=== PATIENT | female | born 1950 | race Caucasian/White ===

== ENCOUNTER 2021-12-26 13:20 | Emergency (ER) | payer OTHER ==
[2021-12-26] MEDS ORDERED: SODIUM CHLORIDE 0.9% 1,000 ML IV STA (13:41)
[2021-12-26] MEDS ORDERED: METOCLOPRAMIDE 5 MG/ML 2 ML VIAL IVP STA (13:43)
[2021-12-26] MEDS ORDERED: MECLIZINE 12.5 MG TAB PO STA (13:43)
--- NOTE | 2021-12-26 13:45 | ED ---
General Adult HPI - General Source: patient, EMS, RN notes reviewed Mode of arrival: EMS Limitations: no limitations <Tank Smith - Last Filed: 12/26/21 14:59> <Louie Mckeon - Last Filed: 12/26/21 16:56> - General Chief complaint: Dizziness Stated complaint: Dizziness Time Seen by Provider: 12/26/21 13:27 - History of Present Illness Initial comments: Patient is a pleasant 71-year-old female presenting to the emergency department with dizziness. Onset of symptoms was less than an hour prior to arrival. Camacho cordova was doing cleaning in the shower prior to this. Patient feels a spinning type sensation. Symptoms worsen with upright position and head movements. Symptoms improved with rest and lying down. No history of similar symptoms previously. No speech problems or confusion. No headache. No weakness. (Tank Smith) - Related Data Previous Rx's Medication Instructions Recorded Meclizine [Antivert] 25 mg PO TID PRN #15 tab 12/26/21 Allergies Allergy/AdvReac Type Severity Reaction Status Date / Time cefazolin [From Kefzol] Allergy Rash/Hives Verified 12/26/21 13:31 codeine Allergy Rash/Hives Verified 12/26/21 13:31 Penicillins Allergy Rash/Hives Verified 12/26/21 13:31 Review of Systems ROS Other: All systems not noted in ROS Statement are negative. Constitutional: Denies: fever Eyes: Denies: eye pain ENT: Denies: ear pain Respiratory: Denies: cough Cardiovascular: Denies: chest pain Endocrine: Denies: fatigue Gastrointestinal: Denies: abdominal pain Genitourinary: Denies: dysuria Musculoskeletal: Denies: back pain Skin: Denies: rash Neurological: Reports: vertigo. Denies: headache, weakness, numbness, paresthesias, confusion <Tank Smith - Last Filed: 12/26/21 14:59> ROS Other: All systems not noted in ROS Statement are negative. <Louie Mckeon - Last Filed: 12/26/21 16:56> ROS Statement: Those systems with pertinent positive or pertinent negative responses have been documented in the HPI. Past Medical History Past Medical History: No Reported History History of Any Multi-Drug Resistant Organisms: None Reported Past Surgical History: Section, Orthopedic Surgery Past Psychological History: No Psychological Hx Reported Smoking Status: Former smoker Past Alcohol Use History: None Reported Past Drug Use History: None Reported <Tank Smith - Last Filed: 12/26/21 14:59> General Exam Limitations: no limitations General appearance: alert, in no apparent distress Head exam: Present: normocephalic Eye exam: Present: normal appearance, PERRL, EOMI ENT exam: Present: normal oropharynx, TM's normal bilaterally Neck exam: Present: normal inspection Respiratory exam: Present: normal lung sounds bilaterally Cardiovascular Exam: Present: regular rate, normal rhythm GI/Abdominal exam: Present: soft. Absent: tenderness Extremities exam: Present: normal inspection Neurological exam: Present: alert, oriented X3, CN II-XII intact. Absent: motor sensory deficit Expanded Neurological exam: Present: protecting the airway Speech: Present: fluid speech Cranial nerves: EOM's Intact: Normal, Facial Sensation: Normal Sensory exam: Upper Extremity Light Touch: Normal, Lower Extremity Light Touch: Normal Motor strength exam: RUE: 5, LUE: 5, RLE: 5, LLE: 5 Eye Response: (4) open spontaneously Motor Response: (6) obeys commands Verbal Response: (5) oriented Psychiatric exam: Present: normal affect, normal mood Skin exam: Present: normal color <Tank Smith - Last Filed: 12/26/21 14:59> Course Vital Signs 12/26/21 16:00 Pulse Rate 94 Respiratory 16 Rate Blood Pressure 160/83 O2 Sat by Pulse 96 Oximetry EKG Findings - EKG Comments: EKG Findings:: Sinus rhythm 89 rate. CA 147. QRS 92. QT 353. QTC 399. Normal axis. Normal QRS. No acute ST change. <Takn Smith - Last Filed: 12/26/21 14:59> Medical Decision Making - Lab Data Result diagrams: 12/26/21 14:44 - Radiology Data Radiology results: report reviewed (CT brain reveals no acute process), image reviewed (Chest x-ray shows no acute process) <Tank Smith - Last Filed: 12/26/21 14:59> - Lab Data Result diagrams: 12/26/21 14:44 12/26/21 14:44 <Louie Mckeon - Last Filed: 12/26/21 16:56> - Medical Decision Making Patient care signed out to me by previous shift physician, Dr. Smith. Briefly, patient is 71-year-old female presents to the emergency department for symptoms suggestive of benign paroxysmal positional vertigo. Prior to sign out patient had computed tomography scan that was read as normal. Patient also do chest x- ray that was unremarkable. Laboratory evaluation was reviewed. CBC, coag panel metabolic panel is unremarkable. Parents was to reevaluate patient or symptoms and determine final disposition. Patient relented bedside at 4:55 PM. Patient states she feels improved. She does confirm that her symptoms are exacerbated with movement and relieved with rest. Patient was given Antivert. States that her symptoms improved with Antivert. Patient is ambulatory without complications. Patient agreeable for discharge. Patient prescription for Antivert advised follow-up with primary care doctor. (Louie Mckeon) - Lab Data Lab Results 12/26/21 12/26/21 12/26/21 Range/Units 14:44 14:44 14:44 WBC 9.1 (3.8-10.6) k/uL RBC 4.43 (3.80-5.40) m/uL Hgb 13.1 (11.4-16.0) gm/dL Hct 40.7 (34.0-46.0) % MCV 91.9 (80.0-100.0) fL MCH 29.6 (25.0-35.0) pg MCHC 32.2 (31.0-37.0) g/dL RDW 13.2 (11.5-15.5) % Plt Count 273 (150-450) k/uL MPV 8.2 Neutrophils % 80 % Lymphocytes % 13 % Monocytes % 5 % Eosinophils % 1 % Basophils % 1 % Neutrophils # 7.3 (1.3-7.7) k/uL Lymphocytes # 1.2 (1.0-4.8) k/uL Monocytes # 0.5 (0-1.0) k/uL Eosinophils # 0.1 (0-0.7) k/uL Basophils # 0.0 (0-0.2) k/uL PT 10.3 (9.0-12.0) sec INR 0.9 (<1.2) Sodium 135 L (137-145) mmol/L Potassium 4.0 (3.5-5.1) mmol/L Chloride 103 (98-107) mmol/L Carbon Dioxide 23 (22-30) mmol/L Anion Gap 9 mmol/L BUN 14 (7-17) mg/dL Creatinine 0.81 (0.52-1.04) mg/dL Est GFR (CKD-EPI)AfAm 85 (>60 ml/min/1.73 sqM) Est GFR (CKD-EPI)NonAf 73 (>60 ml/min/1.73 sqM) Glucose 122 H (74-99) mg/dL Calcium 8.8 (8.4-10.2) mg/dL Total Bilirubin 0.4 (0.2-1.3) mg/dL AST 27 (14-36) U/L ALT 17 (4-34) U/L Alkaline Phosphatase 60 (38-126) U/L Total Protein 6.3 (6.3-8.2) g/dL Albumin 4.1 (3.5-5.0) g/dL Disposition <Tank Smith - Last Filed: 12/26/21 14:59> Is patient prescribed a controlled substance at d/c from ED?: No Time of Disposition: 16:56 <Louie Mckeon - Last Filed: 12/26/21 16:56> Clinical Impression: BPPV (benign paroxysmal positional vertigo) Disposition: HOME SELF-CARE Condition: Good Instructions (If sedation given, give patient instructions): Vertigo (ED) Prescriptions: Meclizine [Antivert] 25 mg PO TID PRN #15 tab PRN Reason: dizziness Referrals: Nonstaff,Physician [Primary Care Provider] - 1-2 days
--- NOTE | 2021-12-26 14:16 | CT ---
EXAMINATION TYPE: CT brain wo con CT DLP: 1056.4 mGycm, Automated exposure control for dose reduction was used. DATE OF EXAM: 12/26/2021 2:07 PM COMPARISON: None. CLINICAL INDICATION:Female, 71 years old with history of weakness, Weakness, dizziness TECHNIQUE: Brain: Axial CT images of the brain were obtained with coronal and sagittal reformats created and rev iewed. Contrast used: None. Oral contrast used: None. FINDINGS: Brain: Extra-axial spaces: No abnormal extra-axial fluid collections. Ventricular system: Within normal limits Cerebral parenchyma: No acute intraparenchymal hemorrhage or mass effect. The brown-white junction is well differentiated. Cerebellum: Unremarkable. Mass effect: No evidence of midline shift. Intracranial vasculature: Atherosclerotic calcifications of the intracranial vessels. Soft tissues: Normal. Calvarium/osseous structures: No depressed skull fracture. Paranasal sinuses and mastoid air cells: Mild scattered paranasal sinus disease. Visualized orbits: Bilateral aphakia IMPRESSION: No acute intracranial process.
--- NOTE | 2021-12-26 14:28 | XR ---
EXAMINATION TYPE: XR chest 2V DATE OF EXAM: 12/26/2021 2:18 PM COMPARISON: Chest radiographs from TECHNIQUE: XR chest 2V . CLINICAL INDICATION:Female, 71 years old with history of Weakness; FINDINGS: Lungs/Pleura: There is no evidence of pleural effusion, focal consolidation, or pneumothorax. Pulmonary vascularity: Unremarkable. Heart/mediastinum: Cardiomediastinal silhouette is unremarkable. Atherosclerotic calcifications are seen in the aorta. Musculoskeletal: Age-indeterminate anterior wedge compression deformity of the midthoracic spine. The re is approximately 30 % height loss without definitive retropulsion. IMPRESSION: No acute cardiopulmonary disease/process. Age-indeterminate wedge compression deformity of the midthoracic spine. Correlate with point tenderne ss.
[2021-12-26 14:59] LABS: Basophils % (A) 1 %; Eosinophils # (A) 0.1 k/uL (0-0.7); Eosinophils % (A) 1 %; HCT 40.7 % (34.0-46.0); HGB 13.1 gm/dL (11.4-16.0); Lymphocytes # (A) 1.2 k/uL (1.0-4.8); Lymphocytes % (A) 13 %; MCH 29.6 pg (25.0-35.0); MCHC 32.2 g/dL (31.0-37.0); MCV 91.9 fL (80.0-100.0); Mean Platelet Volume 8.2; Monocytes # (A) 0.5 k/uL (0-1.0); Monocytes % (A) 5 %; Neutrophils # (A) 7.3 k/uL (1.3-7.7); Neutrophils % (A) 80 %; Platelet Count 273 k/uL (150-450); RBC 4.43 m/uL (3.80-5.40); RDW 13.2 % (11.5-15.5); WBC 9.1 k/uL (3.8-10.6)
[2021-12-26 15:06] LABS: Albumin 4.1 g/dL (3.5-5.0); Calcium 8.8 mg/dL (8.4-10.2); Total Bilirubin 0.4 mg/dL (0.2-1.3); Total Protein 6.3 g/dL (6.3-8.2)
[2021-12-26 15:10] LABS: INR 0.9 (<1.2); Prothrombin Time 10.3 sec (9.0-12.0)
[2021-12-26 15:39] VITALS: RESP 16
[2021-12-26 17:45] VITALS: BP 137/74; PULSE 92; TEMP 97.8
== END 2021-12-26 17:18 | disposition home or self-care (01) ==
LOC: EC 13:20
DX: H81.13 Benign paroxysmal vertigo, bilateral (principal); Z87.891 Personal history of nicotine dependence; Z88.0 Allergy status to penicillin; Z79.891 Long term (current) use of opiate analgesic
CPT/HCPCS: 36415; 93005; 80053; 85025; 85610; 71046; 70450; 99285; 96374; 96361 ×2; J2765